=== PATIENT | female | born 1990 | race Caucasian/White ===

== ENCOUNTER 2023-02-27 11:10 | Emergency (ER) | payer SELFPAY ==
[~2023-02-27] VITALS: Ht 165.1 cm; Wt 70.3 kg
[2023-02-27] MEDS ORDERED: ACETAMINOPHEN 325 MG TABLET ONE (11:27)
[2023-02-27] MEDS ORDERED: ACETAMINOPHEN 650 MG/20.3 ML LIQUID UDC PO ONE (11:45)
[2023-02-27 14:14] LABS: *URINE HCG, QUAL NEGATIVE (NEGATIVE)
[2023-02-27] MEDS ORDERED: KETOROLAC TROMETHAMINE 15 MG INJ ONE (14:30)
[2023-02-27] MEDS ORDERED: KETOROLAC TROMETHAMINE 15 MG INJ IM ONE (14:30)
[2023-02-27 15:35] VITALS: BP 132/69; TEMP 98; O2SAT 98
== END 2023-02-27 15:38 | disposition home or self-care (01) ==
LOC: ER 11:15
DX: M25.511 Pain in right shoulder (principal); M25.561 Pain in right knee; R51.9 Headache, unspecified; R07.89 Other chest pain; W01.0XXA Fall on same level from slipping, tripping and stumbling without subsequent striking against object, initial encounter; Y93.89 Activity, other specified; Y92.89 Other specified places as the place of occurrence of the external cause; Y99.8 Other external cause status
CPT/HCPCS: 99285; 70450; 71045; 84703; 73030; 73562; 96372; J1885; A4663